=== PATIENT | male | born 1955 | race Caucasian/White ===

== ENCOUNTER 2017-01-29 16:14 | Emergency (ER) | payer OTHER ==
[~2017-01-29] VITALS: Ht 177.8 cm; Wt 68.0 kg
[~2017-01-29 16:14] MED LIST: ASPI-618 PO; ATOR40TA PO; HYDR-3326 PO; ISOS60TA4 PO; LOSA100T3 PO; METO25TA6 PO; NITR0.4T SL; PANT40TA4 PO; PRAS10TA5 PO; RANO500T3 PO
[2017-01-29] MEDS ORDERED: HYDROCODONE/APAP 5-325MG TABLET PO ONE (17:00)
--- NOTE | 2017-01-29 17:19 | NUR ---
Pt c/o pain, 12/26, from 2 ABD hernias, umbilical and midline upper. Started getting bad this AM. Pt denies ALEXIS, dizziness, CP, SOB, n/v, no other complaints, no distress noted.
[2017-01-29] MEDS ORDERED: HYDROCODONE/APAP 5-325MG TABLET ONE (17:28)
--- NOTE | 2017-01-29 17:41 | NUR ---
Patient discharged to home in stable conditon. Written and verbal after care instructions given. Patient verbalizes understanding of instructions.
== END 2017-01-29 17:43 | disposition home or self-care (01) ==
LOC: ER 16:16
DX: K42.9 Umbilical hernia without obstruction or gangrene (principal); F17.210 Nicotine dependence, cigarettes, uncomplicated; I10 Essential (primary) hypertension; I25.10 Atherosclerotic heart disease of native coronary artery without angina pectoris; E78.5 Hyperlipidemia, unspecified; J44.9 Chronic obstructive pulmonary disease, unspecified; Z95.5 Presence of coronary angioplasty implant and graft; Z88.8 Allergy status to other drugs, medicaments and biological substances; Z90.49 Acquired absence of other specified parts of digestive tract
CPT/HCPCS: A4663

== ENCOUNTER 2017-04-01 16:26 | Inpatient (IN) | payer OTHER ==
[~2017-04-01] VITALS: Ht 182.9 cm; Wt 86.2 kg
[2017-04-01] MEDS ORDERED: CLOP75TA15 PO (16:45)
--- NOTE | 2017-04-01 17:11 | NUR ---
PT IS IN ROOM #2A. DR JACKSON EVALUATED THE PT.
[2017-04-01] MEDS ORDERED: NITROGLYCERIN 0.4 MG/TAB BOTTLE SL ONE ×2 (17:15→17:39)
[2017-04-01] MEDS ORDERED: ASPIRIN 81 MG TAB.CHEW PO ONE (17:15)
[2017-04-01] MEDS ORDERED: NITROGLYCERIN OINT 1 GM PACKET TP ONE ×2 (17:15→17:39)
[2017-04-01] MEDS ORDERED: ASPIRIN 81 MG TAB.CHEW ONE (17:39)
[2017-04-01 17:40] LABS: BASOPHILS # (AUTO) 0.1 K/uL (0.0-8.0); EOSINOPHILS % (AUTO) 0.1 % (0.0-7.0); HEMOGLOBIN 16.6 G/DL (14.0-18.0); LYMPHOCYTES # (AUTO) 0.9 K/UL (0.8-4.8); LYMPHOCYTES % (AUTO) 11.4 % (20.5-51.5); MEAN CORPUSCULAR HEMOGLOBIN 28.9 UUG (27.0-31.0); MEAN CORPUSCULAR HGB CONC 34 g/dL (32.0-37.0); MEAN CORPUSCULAR VOLUME 85.4 FL (82.0-92.0); MONOCYTES # (AUTO) 0.4 K/UL (0.1-1.30); MONOCYTES % (AUTO) 5.3 % (0.0-11.0); NEUTROPHILS # (AUTO) 6.2 K/UL (1.8-8.9); NEUTROPHILS % (AUTO) 82.2 % (38.5-71.5); PLATELET COUNT (AUTO) 201 K/UL (150-450); RED BLOOD CELL COUNT(AUTO) 5.73 MIL/UL (4.7-6.1); WHITE BLOOD COUNT (AUTO) 7.7 K/UL (4.0-11.2)
[2017-04-01 17:45] LABS: CREATININE 0.8 mg/dL (0.6-1.3); POTASSIUM 3.5 mmol/L (3.5-5.1)
[2017-04-01 17:58] LABS: BILIRUBIN,DIRECT 0.2 mg/dL (0.0-0.2); BILIRUBIN,TOTAL 0.7 mg/dL (0.2-1.0); TOTAL PROTEIN, SERUM 7.8 g/dL (6.4-8.2)
[2017-04-01] MEDS ORDERED: ONDANSETRON 4 MG/2 ML VIAL IV PRN (18:30)
[2017-04-01] MEDS ORDERED: ACETAMINOPHEN 325 MG TABLET PO PRN (18:30)
[2017-04-01] MEDS ORDERED: ASPIRIN 325 MG TABLET PO ONE (18:30)
[2017-04-01] MEDS ORDERED: MAGNESIUM HYDROXIDE 30 ML LIQUID UDC PO PRN (18:30)
[2017-04-01] MEDS: MORPHINE SULFATE 2 MG/1 ML DISP.SYRIN IV PRN ×2 (18:43→22:30)
[2017-04-01] MEDS ORDERED: MORPHINE SULFATE 2 MG/1 ML DISP.SYRIN ONE ×2 (18:59→22:42)
[2017-04-01] MEDS ORDERED: ONDANSETRON 4 MG/2 ML VIAL ONE (19:00)
--- NOTE | 2017-04-01 19:33 | NUR ---
Pt. admitted to telemetry , under care of Dr. Alvarez. Report given to Coy SMITH. Belongs List completed
--- NOTE | 2017-04-01 19:40 | NUR ---
ADMITTED PATIENT IN TELE UNIT UNDER THE CARE OF DR. GALLEGOS, BELONGING LIST DONE.
--- NOTE | 2017-04-01 19:40 | NUR ---
ASA 325MG NOT GIVEN, GIVEN ALREADY AT ER.
[2017-04-01 20:00] VITALS: BP 126/76
[2017-04-01] MEDS ORDERED: DOCUSATE SODIUM 250 MG CAPSULE PO SCH (21:00)
[2017-04-01] MEDS: HYDROCODONE/APAP 5-325MG TABLET PO PRN (21:09)
[2017-04-01] MEDS ORDERED: HYDROCODONE/APAP 5-325MG TABLET ONE (21:19)
[2017-04-01] MEDS ORDERED: LORAZEPAM 1 MG TABLET PO PRN (22:30)
[2017-04-01] MEDS ORDERED: LORAZEPAM 1 MG TABLET ONE (22:42)
[2017-04-01] MEDS ORDERED: DOCUSATE SODIUM 100 MG CAPSULE PO ONE (22:43)
[2017-04-02] VITALS: BP 115/71
--- NOTE | 2017-04-02 | NUR ---
SECTION BEAMER FROM [facility] CALLED AND WANTED TO TRANSFER PATIENT [facility] BUT CHANGED MIND WILL BE TRANSFER TOMORROW MORNING.
[2017-04-02] MEDS: HYDROCODONE/APAP 5-325MG TABLET PO PRN ×2 (01:44→06:57)
[2017-04-02] MEDS ORDERED: HYDROCODONE/APAP 5-325MG TABLET ONE ×2 (01:57→07:04)
[2017-04-02] MEDS: MORPHINE SULFATE 2 MG/1 ML DISP.SYRIN IV PRN ×5 (02:46→19:27)
[2017-04-02] MEDS ORDERED: MORPHINE SULFATE 2 MG/1 ML DISP.SYRIN ONE ×2 (02:58→06:42)
[2017-04-02 04:00] VITALS: BP 111/68
--- NOTE | 2017-04-02 04:41 | NUR ---
PATIENT SLEPT FOR MOST OF THE NIGHT, NO SOB, ON O2 THERAPY 2LITERS NC, FOR ASSIST, RHYTHM IS SINUS RHYTHM , CONT ON PAIN MANAGEMENT, CALL LIGHT WITHIN REACH.
--- NOTE | 2017-04-02 06:09 | NUR ---
PATIENT STILL COMPLAIN OF CHEST PAIN, BUT NOT RADIATING TO LEFT ARM, LEFT JAW, NOR LEFT BACK, SKIN WARM AND DRY, NOTIFY RENETTA SALAZAR NP TO PAIN, AND REQUEST TO INCREASE THE NARCO TO HIGHER DOSE AWAITING FOR RESPONSE. V.S STABLE.
[2017-04-02 06:12] LABS: BASOPHILS % (AUTO) 0.2 % (0.0-2.0); EOSINOPHILS % (AUTO) 0.4 % (0.0-7.0); HEMOGLOBIN 14.9 G/DL (14.0-18.0); LYMPHOCYTES # (AUTO) 1.6 K/UL (0.8-4.8); LYMPHOCYTES % (AUTO) 24.9 % (20.5-51.5); MEAN CORPUSCULAR HEMOGLOBIN 29.5 UUG (27.0-31.0); MEAN CORPUSCULAR HGB CONC 34 g/dL (32.0-37.0); MEAN CORPUSCULAR VOLUME 86.6 FL (82.0-92.0); MONOCYTES # (AUTO) 0.5 K/UL (0.1-1.30); MONOCYTES % (AUTO) 8.3 % (0.0-11.0); NEUTROPHILS # (AUTO) 4.5 K/UL (1.8-8.9); NEUTROPHILS % (AUTO) 66.2 % (38.5-71.5); PLATELET COUNT (AUTO) 192 K/UL (150-450); WHITE BLOOD COUNT (AUTO) 6.6 K/UL (4.0-11.2)
--- NOTE | 2017-04-02 06:14 | NUR ---
PATIENT RHYTHM IS SINUS RHYTHM ALL NIGHT, HR 65.
[2017-04-02 06:34] LABS: HEMATOCRIT 43.8 % (40-50); RED BLOOD CELL COUNT(AUTO) 5.06 MIL/UL (4.7-6.1)
[2017-04-02 06:39] LABS: BILIRUBIN,TOTAL 0.4 mg/dL (0.2-1.0); CREATININE 0.8 mg/dL (0.6-1.3); MAGNESIUM 1.8 mg/dL (1.8-2.4); PHOSPHOROUS 3.6 mg/dL (2.5-4.9); POTASSIUM 3.6 mmol/L (3.5-5.1); TOTAL PROTEIN, SERUM 6.8 g/dL (6.4-8.2)
[2017-04-02] MEDS ORDERED: PANTOPRAZOLE SODIUM 40 MG TABLET.DR PO SCH (07:34)
--- NOTE | 2017-04-02 08:00 | NUR ---
Discussed plan of care with patient re: pain management, notify nursing for any chest pain, and fall precaution. Pt agreeable with plan of care. Call light is within reach. SNR no ectopy noted.
[2017-04-02] MEDS ORDERED: ENOXAPARIN SODIUM 40 MG/0.4 ML DISP.SYRIN SQ SCH (09:00)
--- NOTE | 2017-04-02 10:33 | NUR ---
Multiple medications taken out by restaurant shift supervisor.
[2017-04-02] MEDS ORDERED: MORPHINE SULFATE 4 MG/1 ML DISP.SYRIN IV ONE (11:15)
[2017-04-02 11:16] VITALS: BP 123/66
[2017-04-02] MEDS ORDERED: NITROGLYCERIN 0.3 MG/TAB BOTTLE SL PRN (12:15)
[2017-04-02] MEDS ORDERED: ASPIRIN EC 325 MG TABLET.DR PO SCH (12:15)
[2017-04-02] MEDS ORDERED: CLOPIDOGREL 75 MG TABLET PO SCH (14:30)
[2017-04-02] MEDS ORDERED: ENOXAPARIN SODIUM 60 MG/0.6 ML DISP.SYRIN SQ ONE (14:30)
--- NOTE | 2017-04-02 15:01 | NUR ---
Had been in contact with ALPA Chavira from [facility] [ ; [phone]], about the patient's condition. Dr. Alvarez spoke to their MD, Dr. Dueñas, and they have agreed to transfer the patient to [facility]. Faxed the patient's information to Cait and she stated that she will try to find a Tele bed at [facility] and arrange for ALS transportation. Once they have a bed, [facility] will call the RN station and inform the patient's RN of the Room#, Phone # for the report, and the ETA of the ambulance. Updated Dr. Alvarez, the cloth dyer [Elisha], the patient himself and his RN [[place]]. ALPA/QUINTIN will follow-up. Addendum: 04/02/17 at 1523 by CHRIS KAMARA CMG Cait called and stated that [facility] does not have any Tele beds available. She will look at other hospitals for possible available beds. Updated the patient, smelter charger, and pt's RN.
[2017-04-02 15:39] VITALS: BP 120/72
[2017-04-02] MEDS ORDERED: diphenhydrAMINE 50 MG/1 ML VIAL IV PRN (16:45)
--- NOTE | 2017-04-02 18:00 | NUR ---
Charge nurse noted [facility] have bed for patient and will arrange for flower picker ambulance. Plan of care effective. Pt's pain managed, no fall noted, and no c/o chest pain. Call light is within reach.
[2017-04-02] MEDS ORDERED: DOCU100C36 PO (20:32)
[2017-04-02] MEDS ORDERED: ENOX100D SQ (20:32)
[2017-04-02] MEDS ORDERED: LORA-259 PO (20:32)
[2017-04-02] MEDS ORDERED: HYDR-3326 PO (20:32)
[2017-04-02] MEDS ORDERED: Morphine Sulfate Inj IV (20:32)
[2017-04-02] MEDS ORDERED: Nitroglycerin Sl SL (20:32)
--- NOTE | 2017-04-02 20:55 | NUR ---
TRANSFER PATIENT TO [facility] ROOM 1428, REPORT GIVEN TO JOSH SMITH, PATIENT TOOK ALL HIS BELONGINGS, SB ON MONITOR, NO CHEST PAIN NOTED,VITAL SIGNS STABLE.
[2017-04-02] MEDS ORDERED: DOCUSATE SODIUM 100 MG CAPSULE PO SCH (21:00)
[2017-04-02] MEDS ORDERED: ENOXAPARIN SODIUM 100 MG/ML DISP.SYRIN SQ SCH (21:00)
[2017-04-03] MEDS ORDERED: ASPIRIN 81 MG TAB.CHEW PO SCH (09:00)
== END 2017-04-02 20:55 | disposition short-term general hospital (02) | DRG 198 ==
LOC: ER 16:26 → TELE 19:26
PROVIDERS: ADMIT Internal Medicine; ATTEND Internal Medicine
DX: I25.119 Atherosclerotic heart disease of native coronary artery with unspecified angina pectoris (principal); I11.9 Hypertensive heart disease without heart failure; Z95.5 Presence of coronary angioplasty implant and graft; E87.6 Hypokalemia; K21.9 Gastro-esophageal reflux disease without esophagitis; Z82.49 Family history of ischemic heart disease and other diseases of the circulatory system; Z79.899 Other long term (current) drug therapy; Z79.02 Long term (current) use of antithrombotics/antiplatelets; J44.9 Chronic obstructive pulmonary disease, unspecified; G89.4 Chronic pain syndrome; Z88.8 Allergy status to other drugs, medicaments and biological substances; R55 Syncope and collapse; F17.210 Nicotine dependence, cigarettes, uncomplicated; E78.5 Hyperlipidemia, unspecified; Z82.5 Family history of asthma and other chronic lower respiratory diseases
CPT/HCPCS: 36415; 70030-TC; 71010; 83735; 84100; 85025; 85730; 93005; A4663; J1200; J1650; J2270; J2405

== ENCOUNTER 2018-01-27 20:21 | Inpatient (IN) | payer OTHER ==
[~2018-01-27] VITALS: Ht 182.9 cm; Wt 80.7 kg
[~2018-01-27 20:21] MED LIST changes: +CLOP75TA15 PO; +DOCU100C36 PO; +ENOX100D SQ; -ISOS60TA4 PO; +LORA-259 PO; -LOSA100T3 PO; +Morphine Sulfate Inj IV; -NITR0.4T SL; +Nitroglycerin Sl SL; -PRAS10TA5 PO
[2018-01-27] MEDS ORDERED: NITROGLYCERIN OINT 1 GM PACKET TP ONE ×2 (20:45→21:02)
[2018-01-27] MEDS ORDERED: OXYCODONE/APAP 5-325 MG TABLET PO ONE (20:45)
--- NOTE | 2018-01-27 20:48 | NUR ---
PT IN BED. PT IS AAOX4. PT IS CALM AND COOPERATIVE. PT IS POSITIONED FOR COMFORT. LUNG AND BREATH SOUNDS ARE CLEAR AND EVEN. NO SIGNS OF DISTRESS WITNESSED AT THIS TIME.
[2018-01-27 20:58] LABS: BASOPHILS % (AUTO) 0.4 % (0.0-2.0); EOSINOPHILS % (AUTO) 0.3 % (0.0-7.0); HEMATOCRIT 43.7 % (36.7-47.1); HEMOGLOBIN 15.1 g/dL (12.5-16.3); LYMPHOCYTES # (AUTO) 1.2 K/uL (20.0-40.0); LYMPHOCYTES % (AUTO) 20.7 % (20.5-51.5); MEAN CORPUSCULAR HGB CONC 35 g/dL (32.5-36.3); MEAN CORPUSCULAR VOLUME 86.9 fL (73.0-96.2); MONOCYTES # (AUTO) 0.3 K/uL (2.0-10.0); MONOCYTES % (AUTO) 5.2 % (0.0-11.0); NEUTROPHILS # (AUTO) 4.2 K/uL (1.8-8.9); NEUTROPHILS % (AUTO) 73.4 % (38.5-71.5); PLATELET COUNT (AUTO) 137 K/uL (152-348); RED BLOOD CELL COUNT(AUTO) 5.03 MIL/uL (4.06-5.63); WHITE BLOOD COUNT (AUTO) 5.7 K/uL (3.6-10.2)
[2018-01-27] MEDS ORDERED: OXYCODONE/APAP 5-325 MG TABLET ONE (21:03)
[2018-01-27 21:12] LABS: CREATININE 0.9 mg/dL (0.6-1.3); POTASSIUM 3.4 mmol/L (3.5-5.1)
[2018-01-27 21:23] LABS: BILIRUBIN,DIRECT 0.2 mg/dL (0.0-0.2); BILIRUBIN,TOTAL 0.7 mg/dL (0.2-1.0); TOTAL PROTEIN, SERUM 6.2 g/dL (6.4-8.2)
--- NOTE | 2018-01-27 21:48 | NUR ---
REPORT GIVEN TO TELEMETRY NURSEDANUTA
--- NOTE | 2018-01-27 22:20 | NUR ---
Pt. admitted to TELEMETRY, under care of Dr. GALLEGOS Belongs List completed
[2018-01-27 22:30] VITALS: BP 130/82
[2018-01-27] MEDS ORDERED: IV NORMAL SALINE 500 ML BAG IV ONE (22:30)
[2018-01-27] MEDS ORDERED: NITROGLYCERIN 0.4 MG/TAB BOTTLE SL PRN (22:30)
[2018-01-27] MEDS ORDERED: ENALAPRILAT DIHYDRATE INJ 2.5 MG in IV NORMAL SALINE 50 ML IV PRN (22:30)
[2018-01-27] MEDS ORDERED: ACETAMINOPHEN 325 MG TABLET PO PRN (22:30)
[2018-01-27] MEDS ORDERED: ONDANSETRON 4 MG/2 ML VIAL IV PRN (22:30)
[2018-01-27] MEDS ORDERED: MAGNESIUM HYDROXIDE 30 ML LIQUID UDC PO PRN (22:30)
--- NOTE | 2018-01-27 22:30 | NUR ---
Received patient from ER via gurney. Ambulated to the bed. A/O x 4. In no acute distress noted. TELE SR. Vital signs stable. Patient is able to ambulate with minimal assistance. Admission protocol followed. Safety initiated. Call light within reach.
[2018-01-27] MEDS: METOPROLOL TARTRATE 25 MG TABLET PO SCH (23:04)
[2018-01-27] MEDS: LORAZEPAM 2 MG/1 ML VIAL IV PRN (23:07)
[2018-01-28] MEDS: OXYCODONE/APAP 5-325 MG TABLET PO PRN ×2 (00:10→05:11)
[2018-01-28 00:15] VITALS: BP 111/64
[2018-01-28 04:00] VITALS: BP 126/78
--- NOTE | 2018-01-28 05:11 | NUR ---
Patient c/o pain in the chest area, 12/26. Meds given, stated relief. Will continue to monitor.
--- NOTE | 2018-01-28 05:34 | NUR ---
Patient slept intermittently t/o shift. Patient remains A/O x 4. Calm and cooperative. Patient c/o pain in the chest 12/26. Meds given, stated relief. Vital signs remains stable. TELE SR. Safety and comfort measures maintained t/o shift. All meds given as ordered. All needs met.
[2018-01-28] MEDS: LORAZEPAM 2 MG/1 ML VIAL IV PRN (06:17)
[2018-01-28 06:31] LABS: EOSINOPHILS % (AUTO) 0.3 % (0.0-7.0); HEMATOCRIT 41.4 % (36.7-47.1); HEMOGLOBIN 14.3 g/dL (12.5-16.3); LYMPHOCYTES # (AUTO) 1.1 K/uL (20.0-40.0); LYMPHOCYTES % (AUTO) 27.5 % (20.5-51.5); MEAN CORPUSCULAR HEMOGLOBIN 30.3 uug (23.8-33.4); MEAN CORPUSCULAR HGB CONC 35 g/dL (32.5-36.3); MEAN CORPUSCULAR VOLUME 87.6 fL (73.0-96.2); MONOCYTES # (AUTO) 0.3 K/uL (2.0-10.0); MONOCYTES % (AUTO) 7.4 % (0.0-11.0); NEUTROPHILS # (AUTO) 2.7 K/uL (1.8-8.9); NEUTROPHILS % (AUTO) 64.8 % (38.5-71.5); PLATELET COUNT (AUTO) 134 K/uL (152-348); RED BLOOD CELL COUNT(AUTO) 4.73 MIL/uL (4.06-5.63); WHITE BLOOD COUNT (AUTO) 4.1 K/uL (3.6-10.2)
[2018-01-28] MEDS ORDERED: PANTOPRAZOLE SODIUM 40 MG TABLET.DR PO SCH ×2 (07:00→09:00)
[2018-01-28 07:02] LABS: BILIRUBIN,TOTAL 0.5 mg/dL (0.2-1.0); CREATININE 1.1 mg/dL (0.6-1.3); MAGNESIUM 1.8 mg/dL (1.8-2.4); PHOSPHOROUS 3.6 mg/dL (2.5-4.9); POTASSIUM 3.2 mmol/L (3.5-5.1)
[2018-01-28 08:23] VITALS: BP 105/58
[2018-01-28] MEDS ORDERED: ASPIRIN EC 81 MG TABLET.DR PO SCH (09:00)
[2018-01-28] MEDS ORDERED: RANOLAZINE 500 MG TAB.ER.12H PO SCH (09:00)
[2018-01-28] MEDS ORDERED: CLOPIDOGREL 75 MG TABLET PO SCH (09:00)
[2018-01-28] MEDS ORDERED: POTASSIUM CHLORIDE 20 MEQ TAB.PRT.SR PO ONE (10:30)
--- NOTE | 2018-01-28 10:36 | NUR ---
Pt complained of 8/10 chest pain. Pain is dull and not radiating, non exertional. Per pt, Percocet 5/325mg 1 tab PO ineffective for his pain and is requesting for 2 tablets. Pt was given 2 tabs in ER and per pt it was effective. Relayed to Dr. Perez and obtained new order for Percocet 5/325mg 2 tabs via PO Q6hrs PRN. T.O. read back to Dr. Perez and verified. Noted and carried out. Pt made aware. Addendum: 01/28/18 at 1530 by OPAL COTTER RN Offered Nitro but pt refused and stated he prefers to have two percocets. Per pt, it will be more effective.
[2018-01-28] MEDS ORDERED: OXYCODONE/APAP 5-325 MG TABLET PO PRN (10:45)
[2018-01-28 11:01] VITALS: BP 121/75
[2018-01-28] MEDS: METOPROLOL TARTRATE 25 MG TABLET PO SCH (11:15)
[2018-01-28] MEDS ORDERED: ISOSORBIDE MONONITRATE 60 MG TAB.SR.24H PO SCH (14:00)
--- NOTE | 2018-01-28 14:59 | NUR ---
Pt seen and examined by Dr. Perez with new order for discharge home. Pt made aware.
[2018-01-28] MEDS ORDERED: HYDR-3326 PO (15:01)
[2018-01-28 15:13] VITALS: BP 110/74
--- NOTE | 2018-01-28 15:20 | NUR ---
Pt discharged to home. Left via ambulatory accompanied to the lobby by x1 staff. Left in fair condition. Denies chest pain. Pt given discharge instructions. Left with all his belongings. Answered all his questions regarding what the pharmacy needed in order to fill his prescription for pain medication. IV access and ID band removed.
[2018-01-28] MEDS ORDERED: ATORVASTATIN 40 MG TABLET PO SCH (21:00)
== END 2018-01-28 15:20 | disposition home or self-care (01) | DRG 243 ==
LOC: ER 20:21 → TELE 22:08 → MED 01-28 15:00
PROVIDERS: ADMIT Internal Medicine; ATTEND Internal Medicine
DX: K21.9 Gastro-esophageal reflux disease without esophagitis (principal); I11.9 Hypertensive heart disease without heart failure; M94.0 Chondrocostal junction syndrome [Tietze]; F17.210 Nicotine dependence, cigarettes, uncomplicated; I25.2 Old myocardial infarction; K42.9 Umbilical hernia without obstruction or gangrene; I25.5 Ischemic cardiomyopathy; Z95.5 Presence of coronary angioplasty implant and graft; E87.6 Hypokalemia; E78.5 Hyperlipidemia, unspecified; Z79.899 Other long term (current) drug therapy; G89.4 Chronic pain syndrome; F41.9 Anxiety disorder, unspecified; J44.9 Chronic obstructive pulmonary disease, unspecified; Z82.5 Family history of asthma and other chronic lower respiratory diseases; Z82.49 Family history of ischemic heart disease and other diseases of the circulatory system; Z79.82 Long term (current) use of aspirin; F32.9 Major depressive disorder, single episode, unspecified; Z79.02 Long term (current) use of antithrombotics/antiplatelets; Z76.5 Malingerer [conscious simulation]; I25.119 Atherosclerotic heart disease of native coronary artery with unspecified angina pectoris
CPT/HCPCS: 36415; 70030-TC; 83735; 84100; 85025; 93005; 93307; A4663; J2060; J7040

== ENCOUNTER 2019-06-30 19:32 | Emergency (ER) | payer OTHER ==
[~2019-06-30] VITALS: Ht 172.7 cm; Wt 74.8 kg
[~2019-06-30 19:32] MED LIST changes: -ENOX100D SQ; -LORA-259 PO; -Morphine Sulfate Inj IV; -Nitroglycerin Sl SL
--- NOTE | 2019-06-30 19:35 | NUR ---
Dr. Howell at bedside for MSE.
[2019-06-30] MEDS ORDERED: NITROGLYCERIN 0.4 MG/TAB BOTTLE SL ONE ×2 (19:44→19:45)
[2019-06-30 19:45] VITALS: BP 138/61
[2019-06-30 19:59] LABS: BASOPHILS % (AUTO) 0.2 % (0.0-2.0); EOSINOPHILS % (AUTO) 0.2 % (0.0-7.0); HEMATOCRIT 41.9 % (36.7-47.1); HEMOGLOBIN 14.2 g/dL (12.5-16.3); LYMPHOCYTES # (AUTO) 1.4 K/uL (20.0-40.0); LYMPHOCYTES % (AUTO) 22.8 % (20.5-51.5); MEAN CORPUSCULAR HEMOGLOBIN 29.6 uug (23.8-33.4); MEAN CORPUSCULAR HGB CONC 34 g/dL (32.5-36.3); MEAN CORPUSCULAR VOLUME 87.2 fL (73.0-96.2); MONOCYTES # (AUTO) 0.4 K/uL (2.0-10.0); MONOCYTES % (AUTO) 6.5 % (0.0-11.0); NEUTROPHILS # (AUTO) 4.4 K/uL (1.8-8.9); NEUTROPHILS % (AUTO) 70.3 % (38.5-71.5); PLATELET COUNT (AUTO) 188 K/uL (152-348); WHITE BLOOD COUNT (AUTO) 6.3 K/uL (3.6-10.2)
[2019-06-30 20:06] LABS: CREATININE 0.8 mg/dL (0.6-1.3); POTASSIUM 3.8 mmol/L (3.5-5.1)
[2019-06-30] MEDS ORDERED: cozaar PO (20:08)
[2019-06-30] MEDS ORDERED: CLON0.2T PO (20:08)
[2019-06-30] MEDS ORDERED: LORA2TAB95 PO (20:08)
[2019-06-30] MEDS ORDERED: ESCI20TA PO (20:08)
--- NOTE | 2019-06-30 20:15 | NUR ---
Xray at bedside.
[2019-06-30 20:19] LABS: BILIRUBIN,DIRECT 0.1 mg/dL (0.0-0.2); BILIRUBIN,TOTAL 0.2 mg/dL (0.2-1.0); TOTAL PROTEIN, SERUM 6.8 g/dL (6.4-8.2)
[2019-06-30] MEDS ORDERED: CLONAZEPAM 1 MG TABLET ONE (20:48)
[2019-06-30] MEDS ORDERED: CLONAZEPAM 0.5 MG TABLET PO ONE (21:00)
--- NOTE | 2019-06-30 21:05 | NUR ---
Dr. Howell spoke with Dr. Dumont of [facility]. Pt accepted for transfer to [facility].
--- NOTE | 2019-06-30 22:20 | NUR ---
Spoke with Krissy from [place] for placement at [facility]. Room 201B with nurse Abisai contact number [phone]. Krissy to call back for ETA of transport
--- NOTE | 2019-06-30 22:36 | NUR ---
Received call back from [facility] of [facility] with transfer information. Accepting MD is Dr. Bob, pt going to room 201B, number to report to , and eta of 2 hours from [facility].
--- NOTE | 2019-07-01 00:31 | NUR ---
Zoie arrived to Er to transport patient to [facility]. Report and documentation given to EMT.
--- NOTE | 2019-07-01 00:41 | NUR ---
Report given to Rashaun SMITH [facility].
[2019-09-13] MEDS ORDERED: HYDR-4354 PO (13:12)
[2019-09-13] MEDS ORDERED: CLON1TAB PO (13:12)
[2019-10-12] MEDS ORDERED: CLOP75TA15 PO (19:52)
== END 2019-07-01 00:43 | disposition short-term general hospital (02) ==
LOC: ER 19:37
DX: R07.9 Chest pain, unspecified (principal); R42 Dizziness and giddiness; R11.0 Nausea; J44.9 Chronic obstructive pulmonary disease, unspecified; F17.210 Nicotine dependence, cigarettes, uncomplicated; F32.9 Major depressive disorder, single episode, unspecified; F41.9 Anxiety disorder, unspecified; E78.5 Hyperlipidemia, unspecified; Z90.49 Acquired absence of other specified parts of digestive tract; Z88.8 Allergy status to other drugs, medicaments and biological substances; Z79.82 Long term (current) use of aspirin; Z79.899 Other long term (current) drug therapy
CPT/HCPCS: 36415; 70030-TC; 71045; 85025; 93005; A4663

== ENCOUNTER 2019-09-13 12:54 | Emergency (ER) | payer OTHER ==
[~2019-09-13] VITALS: Ht 182.9 cm; Wt 72.6 kg
[2019-09-13] MEDS ORDERED: NITROGLYCERIN 0.4 MG/TAB BOTTLE SL ONE ×2 (13:15→13:17)
[2019-09-13 13:16] VITALS: BP 133/94
[2019-09-13 13:32] LABS: BASOPHILS % (AUTO) 0.3 % (0.0-2.0); EOSINOPHILS % (AUTO) 0.2 % (0.0-7.0); HEMATOCRIT 44.4 % (36.7-47.1); HEMOGLOBIN 15.3 g/dL (12.5-16.3); LYMPHOCYTES # (AUTO) 1.3 K/uL (20.0-40.0); LYMPHOCYTES % (AUTO) 19.1 % (20.5-51.5); MEAN CORPUSCULAR HEMOGLOBIN 29.6 uug (23.8-33.4); MEAN CORPUSCULAR HGB CONC 35 g/dL (32.5-36.3); MEAN CORPUSCULAR VOLUME 85.6 fL (73.0-96.2); MONOCYTES # (AUTO) 0.4 K/uL (2.0-10.0); MONOCYTES % (AUTO) 5.9 % (0.0-11.0); NEUTROPHILS # (AUTO) 5.1 K/uL (1.8-8.9); NEUTROPHILS % (AUTO) 74.5 % (38.5-71.5); PLATELET COUNT (AUTO) 218 K/uL (152-348); RED BLOOD CELL COUNT(AUTO) 5.18 MIL/uL (4.06-5.63); WHITE BLOOD COUNT (AUTO) 6.8 K/uL (3.6-10.2)
[2019-09-13] MEDS ORDERED: GABAPENTIN 300 MG CAPSULE ONE (13:34)
[2019-09-13 13:40] LABS: CREATININE 0.9 mg/dL (0.6-1.3); POTASSIUM 3.9 mmol/L (3.5-5.1)
[2019-09-13] MEDS ORDERED: GABAPENTIN 300 MG CAPSULE PO ONE (13:45)
[2019-09-13 13:52] LABS: BILIRUBIN,DIRECT 0.2 mg/dL (0.0-0.2); BILIRUBIN,TOTAL 0.7 mg/dL (0.2-1.0); TOTAL PROTEIN, SERUM 7.5 g/dL (6.4-8.2)
--- NOTE | 2019-09-13 14:21 | NUR ---
Patient does not wish to proceed with medical care recommended by Dr. GUADARRAMA. Patient given information related to possible complications, up to and including , which could occur as a result of leaving the hospital at this time. Patient verbalizes understanding of risks involved due to leaving against medical advice. Patient has signed AMA form.
== END 2019-09-13 14:24 | disposition left against medical advice (07) ==
LOC: ER 12:56
DX: R07.89 Other chest pain (principal); J44.9 Chronic obstructive pulmonary disease, unspecified; F17.210 Nicotine dependence, cigarettes, uncomplicated; Z88.8 Allergy status to other drugs, medicaments and biological substances; Z79.82 Long term (current) use of aspirin; Z79.899 Other long term (current) drug therapy; Z76.5 Malingerer [conscious simulation]
CPT/HCPCS: 36415; 70030-TC; 71045; 85025; 85730; 93005; A4663

== ENCOUNTER 2019-10-12 19:42 | Emergency (ER) | payer MEDICARE, OTHER ==
[~2019-10-12] VITALS: Ht 182.9 cm; Wt 74.8 kg
--- NOTE | 2019-10-12 20:15 | NUR ---
Dr. Tariq at bedside for MSE.
[2019-10-12] MEDS ORDERED: IBUPROFEN 800 MG TABLET PO ONE (20:30)
--- NOTE | 2019-10-12 20:35 | NUR ---
Xray at bedside.
[2019-10-12] MEDS ORDERED: IBUPROFEN 800 MG TABLET ONE (20:53)
--- NOTE | 2019-10-12 20:58 | NUR ---
Patient discharged to home in stable condition. Written and verbal after care instructions given. Patient verbalizes understanding of instructions. Stressed follow up or return to ER for worsening s/s. Pt ambulated out of ER with steady gait, no acute signs of distress, VSS, all belongings taken.
[2019-10-12 20:59] VITALS: BP 140/91
== END 2019-10-12 20:59 | disposition home or self-care (01) ==
LOC: ER 19:44
DX: S20.212A Contusion of left front wall of thorax, initial encounter (principal); W18.30XA Fall on same level, unspecified, initial encounter; Y93.01 Activity, walking, marching and hiking; Y92.410 Unspecified street and highway as the place of occurrence of the external cause; Z95.5 Presence of coronary angioplasty implant and graft; J44.9 Chronic obstructive pulmonary disease, unspecified; F17.210 Nicotine dependence, cigarettes, uncomplicated; Z83.6 Family history of other diseases of the respiratory system; Z79.02 Long term (current) use of antithrombotics/antiplatelets; F11.10 Opioid abuse, uncomplicated; G89.4 Chronic pain syndrome; I25.10 Atherosclerotic heart disease of native coronary artery without angina pectoris; I10 Essential (primary) hypertension; Z79.899 Other long term (current) drug therapy
CPT/HCPCS: 71101; A4663

== ENCOUNTER 2021-04-10 23:48 | Emergency (ER) | payer OTHER ==
[~2021-04-10] VITALS: Ht 182.9 cm; Wt 65.8 kg
[~2021-04-10 23:48] MED LIST changes: +CLON0.2T PO; +CLON1TAB PO; +ESCI20TA PO; -HYDR-3326 PO; -PANT40TA4 PO; +PANT40TA49 PO; -RANO500T3 PO; +cozaar PO
--- NOTE | 2021-04-11 | NUR ---
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 A/O X3, NO SOB OR LABORED BREATHING, AFEBRILE. CLEAR SPEECH, COMPLETE SENTENCES. HAND WIRE COMMUNICATIONS ENGINEER EQUAL. HAS HX OF 3 STENT PLACEMENTS AND HTN.
--- NOTE | 2021-04-11 00:12 | NUR ---
DR. RODRÍGUEZ AT BEDSIDE, MSE IN PROGRESS.
--- NOTE | 2021-04-11 00:16 | NUR ---
XRAY AT BEDSIDE.
[2021-04-11] MEDS ORDERED: HYDROMORPHONE 1 MG/1 ML DISP.SYRIN IV ONE (00:30)
[2021-04-11] MEDS ORDERED: SWABABLE VALVE TRANSFER SET EA MC ONE (00:30)
[2021-04-11] MEDS ORDERED: IV NORMAL SALINE 250 ML IV ONE (00:30)
[2021-04-11] MEDS ORDERED: IOHEXOL 300MG/ML 100 ML INFUS..BTL ONE (00:30)
[2021-04-11] MEDS ORDERED: IV NORMAL SALINE 1000 ML BAG IV ONE (00:30)
[2021-04-11] MEDS ORDERED: ONDANSETRON 4 MG/2 ML VIAL IV ONE (00:30)
[2021-04-11] MEDS ORDERED: HYDROMORPHONE 1 MG/1 ML DISP.SYRIN ONE (00:32)
[2021-04-11] MEDS ORDERED: ONDANSETRON 4 MG/2 ML VIAL ONE (00:33)
[2021-04-11 00:40] LABS: HEMATOCRIT 38.7 % (36.7-47.1); MEAN CORPUSCULAR HEMOGLOBIN 29.1 uug (23.8-33.4); PLATELET COUNT (AUTO) 161 K/uL (152-348)
[2021-04-11 00:50] LABS: CREATININE 1.1 mg/dL (0.6-1.3); POTASSIUM 3.5 mmol/L (3.5-5.1)
[2021-04-11 00:55] LABS: BILIRUBIN,DIRECT 0.1 mg/dL (0.0-0.2); BILIRUBIN,TOTAL 0.4 mg/dL (0.2-1.0); TOTAL PROTEIN, SERUM 6.8 g/dL (6.4-8.2)
--- NOTE | 2021-04-11 01:10 | NUR ---
PT TAKEN DOWN FOR CT.
--- NOTE | 2021-04-11 01:35 | NUR ---
PT RETURNED FROM CT.
[2021-04-11] MEDS ORDERED: MAGNESIUM CITRATE 296 ML BOTTLE PO ONE (03:30)
[2021-04-11] MEDS ORDERED: DOCU250C14 PO (03:32)
[2021-04-11] MEDS ORDERED: BISA10SU61 RC (03:32)
[2021-04-11] MEDS ORDERED: BISA-79 PO (03:32)
--- NOTE | 2021-04-11 03:43 | NUR ---
DR. RODRÍGUEZ GAVE T.O. ORDER FOR ATIVAN 1 MG PO.
[2021-04-11] MEDS ORDERED: LORAZEPAM 0.5 MG TABLET PO ONE (03:45)
[2021-04-11] MEDS ORDERED: LORAZEPAM 1 MG TABLET ONE (03:53)
--- NOTE | 2021-04-11 04:04 | NUR ---
Patient discharged to home in stable condition. Denies any pain/discomfort upon discharge. Written and verbal after care instructions given. Patient verbalizes understanding of instructions. Stressed follow up or return to ER for worsening s/s. Steady gait.
[2021-04-11 04:05] VITALS: BP 138/76
== END 2021-04-11 04:06 | disposition home or self-care (01) ==
LOC: ER 23:51
DX: R07.89 Other chest pain (principal); F17.210 Nicotine dependence, cigarettes, uncomplicated; K59.00 Constipation, unspecified; R10.84 Generalized abdominal pain; Z83.6 Family history of other diseases of the respiratory system; Z82.49 Family history of ischemic heart disease and other diseases of the circulatory system; I25.10 Atherosclerotic heart disease of native coronary artery without angina pectoris; Z95.5 Presence of coronary angioplasty implant and graft; E78.5 Hyperlipidemia, unspecified; Z79.02 Long term (current) use of antithrombotics/antiplatelets; Z79.899 Other long term (current) drug therapy; I10 Essential (primary) hypertension; F32.9 Major depressive disorder, single episode, unspecified; G89.4 Chronic pain syndrome; J44.9 Chronic obstructive pulmonary disease, unspecified
CPT/HCPCS: 36415; 71045; 74177; 80048; 80076; 83690; 84484; 85025; 93005; 96361; 96374; 96375; 99285; J1170; J2405; Q9967; 70030-TC; J7030; J7050